=== PATIENT | female | born 1985 | race Caucasian/White ===

== ENCOUNTER 2017-06-13 09:07 | Inpatient (IN) | payer BC ==
[~2017-06-13 09:07] MED LIST: Acetaminophen 500 MG Tab PO ONE; Celecoxib 200 MG Cap PO ONE; Gabapentin 300 MG Cap PO ONE; Scopolamine 1.5 MG Transdermal Patch TRDERM ONE; cefOXitin 2 GM Vial ONE
[2017-06-13] MEDS ORDERED: Dextrose 5%-Lactated Ringers 1,000 ML IV SCH (09:30)
[2017-06-13] MEDS ORDERED: Neostigmine Methylsulfate 1 MG/ML 5 ML Syringe ONE (09:41)
[2017-06-13] MEDS ORDERED: Glycopyrrolate 0.2 MG/ML 5 ML MDV ONE (09:41)
[2017-06-13] MEDS ORDERED: Propofol 200 MG/20 ML SDV ONE (09:41)
[2017-06-13] MEDS ORDERED: Rocuronium 50 MG/5 ML Vial ONE ×2 (09:41→11:56)
[2017-06-13] MEDS ORDERED: Succinylcholine 200 MG/10 ML MDV ONE (09:41)
[2017-06-13] MEDS ORDERED: Ondansetron 4 MG/2 ML SDV ONE (09:41)
[2017-06-13] MEDS ORDERED: fentaNYL 250 MCG/5 ML SDV ONE (09:41)
[2017-06-13] MEDS ORDERED: Dexamethasone 4 MG/ML SDV ONE (09:41)
[2017-06-13] MEDS ORDERED: Midazolam 1 MG/ML 2 ML SDV ONE (10:55)
[2017-06-13] MEDS ORDERED: Ketamine 500 MG/5 ML MDV IV SCH (11:00)
[2017-06-13] MEDS ORDERED: cefOXitin 2 GM in Sodium Chloride 0.9% 50 ML IV ONE (11:00)
[2017-06-13] MEDS ORDERED: Ropivacaine 60 ML, Dexamethasone 8 MG, EPINEPHrine 0.4 MG, Sodium Chloride 0.9% 17.6 ML NERVRT SCH ×4 (11:00)
[2017-06-13] MEDS ORDERED: Lidocaine 2% 100 MG/5 ML Syringe IVPUSH ONE (11:00)
[2017-06-13] MEDS ORDERED: Sodium Chloride 0.9% Irrigation 1,000 ML Container IRR ONE (11:52)
[2017-06-13] MEDS ORDERED: fentaNYL 100 MCG/2 ML SDV ONE (12:02)
[2017-06-13] MEDS ORDERED: Lactated Ringers 1,000 ML ONE (12:26)
[2017-06-13] MEDS ORDERED: hydrOXYzine HCl 100 MG/2 ML SDV IM ONE (12:29)
[2017-06-13] MEDS ORDERED: Ondansetron 4 MG/2 ML SDV IVPUSH PRN (15:00)
[2017-06-13] MEDS ORDERED: hydrOXYzine HCl 100 MG/2 ML SDV IM PRN (15:00)
[2017-06-13] MEDS ORDERED: Metoclopramide 10 MG/2 ML SDV IVPUSH PRN (15:00)
[2017-06-13] MEDS ORDERED: Labetalol 20 MG/4 ML Syringe IVPUSH PRN (15:00)
[2017-06-13] MEDS ORDERED: diphenhydrAMINE 50 MG/ML SDV IVPUSH PRN (15:00)
[2017-06-13] MEDS: cefOXitin 2 GM in Sodium Chloride 0.9% 50 ML IV SCH ×2 (15:32→22:01)
[2017-06-13] MEDS: Acetaminophen Soln 650 MG/20.3 ML UD Cup PO SCH ×2 (15:36→21:10)
[2017-06-13] MEDS: Lidocaine 0.4%/D5W 2 GM/500 ML BAG IV SCH (15:39)
[2017-06-13] MEDS ORDERED: Pantoprazole 40 MG Vial IVPUSH SCH (16:00)
[2017-06-13] MEDS ORDERED: MVI, Adult with Vitamin K 10 ML, Thiamine 200 MG, Chromium/Copper/Mang/Selen/Zn 1 ML in... IV SCH ×4 (16:00)
[2017-06-13] MEDS: Heparin Sodium 5,000 Units/ML Vial SUBCUT SCH (17:19)
[2017-06-13] MEDS: Gabapentin 250 MG/5 ML Solution ML 470 ML Bottle PO SCH (20:16)
[2017-06-13] MEDS: Dextrose 5%-Lactated Ringers 1,000 ML IV SCH (23:02)
[2017-06-13] MEDS ORDERED: Iohexol 647 MG/ML 50 ML SDV PO SCH (23:45)
[2017-06-14] MEDS: cefOXitin 2 GM in Sodium Chloride 0.9% 50 ML IV SCH (04:24)
[2017-06-14] MEDS: Acetaminophen Soln 650 MG/20.3 ML UD Cup PO SCH ×4 (04:25→21:16)
[2017-06-14] MEDS: Lidocaine 0.4%/D5W 2 GM/500 ML BAG IV SCH (04:26)
[2017-06-14] MEDS: Dextrose 5%-Lactated Ringers 1,000 ML IV SCH (04:27)
[2017-06-14] MEDS: Heparin Sodium 5,000 Units/ML Vial SUBCUT SCH ×2 (05:43→18:01)
[2017-06-14] MEDS ORDERED: Dextrose 5%-Lactated Ringers 1,000 ML IV SCH (07:53)
[2017-06-14] MEDS ORDERED: Ondansetron 4 MG Tab.DIS PO PRN (07:54)
[2017-06-14] MEDS ORDERED: LEVONORGESTREL IUTERINE SCH (08:00)
--- NOTE | 2017-06-14 08:44 | CR ---
Limited upper GI The patient is status post Ary-en-Y gastric bypass. There are left upper quadrant drains in place. T here is no extravasation of contrast. The gastric pouch empties readily into a nondilated Ary limb. No complications are evident. Impression: 1. Status post Ary-en-Y gastric bypass without evidence for complication.
[2017-06-14] MEDS: Celecoxib 200 MG Cap PO SCH (08:48)
[2017-06-14] MEDS: Citalopram 20 MG Tab PO SCH (08:50)
[2017-06-14] MEDS: Gabapentin 250 MG/5 ML Solution ML 470 ML Bottle PO SCH ×3 (08:55→21:16)
[2017-06-14] MEDS: SCOPOLAMINE PATCH CHECK TOP SCH (08:55)
--- NOTE | 2017-06-14 10:21 | PN ---
DATE OF SERVICE: 06/14/2017 SUBJECTIVE: Analisa is postop day 1. Her vital signs have been stable. Her activity was good. Oral intake 600, output is 2200. Her UGO drain put out a 105 mL of light red drainage. REVIEW OF SYSTEMS: Remainder of review of systems negative for any pertinent positives and negatives. OBJECTIVE: GENERAL: Analisa Hammond is a 32-year-old female. She is alert and orientated. VITAL SIGNS: TPR is 98, 75, 16, blood pressure 129/75. HEENT: Negative. NECK: Supple. HEART: Regular rate and rhythm. LUNGS: Clear. ABDOMEN: Dressings dry and intact. UGO drain intact as above. Abdominal binder is on. EXTREMITIES: Without peripheral edema. ASSESSMENT: Laparoscopic Ary-en-Y gastric bypass surgery, repair of hiatal hernia and excision of mediastinal lipoma for morbid obesity, hiatal hernia, and mediastinal lipoma. Date of surgery 06/13/2017, Talon Ellis MD, surgeon. PLAN: 1. Decrease IV rate to 100 mL per hour. 2. Saline lock if oral intake adequate, step 2 gastric bypass diet without cereal. 3. Dressing off, may shower. 4. Zofran 4 mg ODT q.4 hours p.r.n. nausea. 5. 3 med cups per hour, record at bedside. 6. We will evaluate p.r.n. or in a.m. Marquita Palomo PA-C /[id number]
[2017-06-14] MEDS ORDERED: Pantoprazole 40 MG Delayed-Release Granules 1 Packet PO SCH (16:00)
[2017-06-14] MEDS ORDERED: MVI, Adult with Vitamin K 10 ML, Thiamine 200 MG, Chromium/Copper/Mang/Selen/Zn 1 ML in... IV SCH ×4 (16:00)
[2017-06-15] MEDS: Acetaminophen Soln 650 MG/20.3 ML UD Cup PO SCH ×2 (04:58→10:10)
[2017-06-15] MEDS: Heparin Sodium 5,000 Units/ML Vial SUBCUT SCH (05:00)
[2017-06-15] MEDS: Celecoxib 200 MG Cap PO SCH (08:25)
[2017-06-15] MEDS ORDERED: Cyanocobalamin (Vitamin B12) 1,000 MCG/ML SDV IM ONE (09:00)
[2017-06-15] MEDS: Citalopram 20 MG Tab PO SCH (10:09)
[2017-06-15] MEDS: SCOPOLAMINE PATCH CHECK TOP SCH (10:10)
[2017-06-15] MEDS: Gabapentin 250 MG/5 ML Solution ML 470 ML Bottle PO SCH (10:11)
--- NOTE | 2017-06-18 11:49 | DISCH ---
FINAL DIAGNOSES: 1. Morbid obesity. 2. Marked hepatomegaly. 3. Paraesophageal diaphragmatic hernia. 4. Mediastinal lipoma. SECONDARY DIAGNOSIS: 1. Anxiety and depression. 2. Retinal abnormalities. OPERATIVE PROCEDURE: Done on 06/13/2017 was a laparoscopic Ary-en-Y gastric bypass surgery with long limb gastroenterostomy, Ramon-Cut needle liver biopsy, repair of paraesophageal diaphragmatic hernia, and excision of mediastinal lipoma. SUMMARY: This is a 32-year-old female presenting with longstanding morbid obesity and increasingly significant comorbidities. After preoperative evaluation and discussion, she wished to proceed with gastric bypass procedure. This was done on the date of admission, along with the above concurrent procedures. Postoperatively, she has had no significant problems. She is tolerating step-2 diet and will be discharged home with a combination of Celebrex, gabapentin, and Tylenol as needed for pain, and otherwise, she will continue citalopram as preoperatively. Follow up will be with Marquita Palomo at [facility] on 06/24/2017. She will be instructed to maintain the step-2 diet until that appointment and hold vitamin supplements until that appointment as well.
--- NOTE | 2017-06-24 15:10 | OR ---
DATE OF PROCEDURE: 06/13/2017 PREOPERATIVE DIAGNOSIS: Morbid obesity. POSTOPERATIVE DIAGNOSES: 1. Morbid obesity. 2. Marked hepatomegaly. 3. Paraesophageal diaphragmatic hernia. 4. Mediastinal lipoma. OPERATIVE PROCEDURES: 1. Laparoscopic Ary-en-Y gastric bypass with long limb gastroenterostomy (51119). 2. Ramon-Cut needle liver biopsy (17041). 3. Repair of paraesophageal diaphragmatic hernia (01733). 4. Excision of mediastinal lipoma (90673). ANESTHESIA: General. RESEARCH MANUFACTURING OPERATOR: Marquita Palomo PA-C. INDICATIONS FOR PROCEDURE: This is a 32-year-old female presenting with longstanding morbid obesity and increasingly significant comorbidities. After preoperative evaluation and discussion, she wished to proceed with a gastric bypass procedure. Potential risks including bleeding, infection, leaks from various GI tract closures, problems with bowel obstruction over time, as well as possibility of cardiopulmonary, septic, or hemorrhagic complications leading to were discussed, and the patient wishes to proceed. DETAILS OF PROCEDURE: The patient was taken to the operating room and placed in a supine position. After general endotracheal anesthesia was induced, she was converted to a lithotomy position and the abdomen prepped and draped and an orogastric tube placed. At 15 cm inferior, 5 cm left of xiphoid process, a transverse incision was made. The peritoneal cavity was entered under direct vision with Optiview trocar and inflated to 15 mmHg pressure with CO2. No underlying trocar insertion site injuries were seen. Following this, using direct visualization of the needle location, bilateral subcostal transversus abdominis pane blocks were placed using standard solution without difficulty. Following this, 5 additional trocars were placed across her upper and mid abdomen, and general exploration was undertaken. The patient was noted to have marked hepatomegaly with liver volume being roughly 2 to 3 times normal and the liver grossly fatty infiltrated. Ramon- Cut needle biopsies were obtained from the left lobe of the liver. Minimal bleeding from the biopsy sites was controlled with electrocautery. The omentum was then divided in the midline up to the level of the transverse colon. This allowed identification of the small bowel to the ligament of Treitz. Small bowel was then traced out 100 cm distal to that point, where it was divided transversely with a MARJAN stapler. Small bowel was then traced out an additional 150 cm, where the apiy-ar-sagh enteroenterostomy was accomplished with internal firing of the Endo-MARJAN 60 mm stapler; common openings were closed transversely with the same stapler, angles anastomosed, and the mesenteric defect approximated with some 0 Ethibond stitch, along with fibrin sealant. The divided end of the Ary limb was then from the mesentery for a few centimeters, which allowed an antecolic position of the Ary limb up to the level of the gastroesophageal junction without tension. The liver was then retracted anteriorly. The patient was noted to have a moderate-sized paraesophageal diaphragmatic hernia. This contained some perigastric fat, as well as some of the gastric fundus and some omentum coursing the plane anterior to the course of the esophagus. This was then reduced and the peritoneum overlying incised and reflected downward. During the course of the crural dissection, the patient was noted to have a mediastinal lipoma, which, to facilitate adequate closure, was excised and sent as a separate specimen. The anterior diaphragmatic repair was then accomplished with 0 Ethibond sutures reinforced with PTFE pledgets. At this point, the gastrointestinal balloon catheter was inflated 15 mL and pulled up snugly against the EG junction. Gastric wall over the apex of the balloon was then marked with electrocautery and balloon catheter deflated and pulled out from the esophagus. The lesser omental tissue adjacent to the gastric cardia was then incised, allowing dissection behind the stomach at that level. Pouch formation was then initiated with a transverse firing of the MARJAN stapler at the level of cauterized carrington on the gastric cardia. Pouch was then completed with 3 additional firings of MARJAN stapler up to and through the angle of His. Upon completion of the pouch, both staple lines were noted to be intact. The anvil of a 25 mm EEA stapler was then attached to [place] sump-type tube, and the latter was brought down through the mouth and taken out through a small opening in the gastric pouch. This allowed the anvil likewise to be pulled down to within the gastric pouch. The divided end of the Ary limb and was then opened, and the main body of the EEA stapler was passed several centimeters into the lumen of the small bowel, brought up the anvil and united with it, thus creating the gastrojejunostomy. Upon removal of stapler, double donuts of mucosa were noted within it. The small bowel was closed off with a vascular staple line. Gastrojejunostomy was reinforced with some 3-0 Vicryl seromuscular stitch, along with fibrin sealant. Leak test was accomplished with injection of 120 mL of air in the gastric pouch while submerged in a cefoxitin-containing saline solution. No leaks were identified. One Wyatt-Pineda drain was then placed adjacent to the gastrojejunostomy and from there up into the splenic fossa. No further problems noted. Trocars were removed. The peritoneal cavity was deflated. The incision was closed with some 4-0 Vicryl skin stitch, which we will also use to affix the drain. Dressing was applied. The patient was taken to the recovery room in a satisfactory condition. Physician bookkeeper assistant, Marquita Palomo, played an essential role in assisting in this case, helping to position the patient, retract structures as needed, as well as suturing and cutting sutures when indicated. Her presence improved patient's safety and decreased operative time. Talon Ellis MD /[id number]
== END 2017-06-15 11:10 | disposition home or self-care (01) | DRG 403 ==
LOC: JP.SDS 09:07 → JP.SDSSCHI 09:07 → EDSTATUS 12:10 → JP.2SS 12:50
PROVIDERS: ADMIT Surgery; ATTEND Surgery
PROC: 0D164ZA Bypass Stomach to Jejunum, Percutaneous Endoscopic Approach (ICD-10-PCS; principal; 2017-06-13)
PROC: 0BQT4ZZ Repair Diaphragm, Percutaneous Endoscopic Approach (ICD-10-PCS; 2017-06-13)
PROC: 0WBC4ZX Excision of Mediastinum, Percutaneous Endoscopic Approach, Diagnostic (ICD-10-PCS; 2017-06-13)
PROC: 0FB24ZX Excision of Left Lobe Liver, Percutaneous Endoscopic Approach, Diagnostic (ICD-10-PCS; 2017-06-13)
DX: E66.01 Morbid (severe) obesity due to excess calories (principal); Z68.42 Body mass index [BMI] 45.0-49.9, adult; K44.9 Diaphragmatic hernia without obstruction or gangrene; D17.4 Benign lipomatous neoplasm of intrathoracic organs; R16.0 Hepatomegaly, not elsewhere classified; F32.9 Major depressive disorder, single episode, unspecified; F41.9 Anxiety disorder, unspecified; H52.10 Myopia, unspecified eye; H35.9 Unspecified retinal disorder
CPT/HCPCS: 36415; 74240; 74240-26; 82962; 86850; 86900; 86901; 88304; 88307; 88313; 94762; A9270-GY; C9113; J0171; J0330; J0694; J1100; J1644; J2001; J2250; J2405; J2704; J2710; J2795; J3010; J3410; J3411; J3420; J7030; J7042; J7050; J7120; Q9967